=== PATIENT | female | born 1980 | race Caucasian/White ===

== ENCOUNTER 2016-10-10 18:34 | Emergency (ER) | payer MEDICAID, OTHER ==
[~2016-10-10] VITALS: Ht 162.6 cm; Wt 99.8 kg
[2016-10-10 18:35] VITALS: BP_SYST 136
[2016-10-10] MEDS ORDERED: KETOROLAC TROMETHAMINE 60 MG/2 ML VIAL IM ONE (20:00)
[2016-10-10 20:15] VITALS: BP_SYST 127
== END 2016-10-10 20:15 | disposition home or self-care (01) ==
LOC: SED 18:34
DX: S46.811A Strain of other muscles, fascia and tendons at shoulder and upper arm level, right arm, initial encounter (principal); X50.0XXA Overexertion from strenuous movement or load, initial encounter; Y93.89 Activity, other specified; Y92.89 Other specified places as the place of occurrence of the external cause; Y99.8 Other external cause status
CPT/HCPCS: 73030; 81025; 96372; 99284; J1885

== ENCOUNTER 2016-11-08 16:46 | Emergency (ER) | payer MEDICAID ==
[~2016-11-08] VITALS: Ht 162.6 cm; Wt 99.8 kg
[2016-11-08 16:50] VITALS: BP_SYST 129
[2016-11-08 18:43] LABS: BILIRUBIN,URINE NEGATIVE (NEGATIVE); BLOOD, URINE NEGATIVE (NEGATIVE); CLARITY/URINE CLEAR (CLEAR); COLOR,URINE YELLOW (YELLOW); GLUCOSE,URINE NEGATIVE (NEGATIVE); KETONES,URINE NEGATIVE (NEGATIVE); LEUKOCYTE ESTERASE ,URINE NEGATIVE (NEGATIVE); NITRITE, URINE NEGATIVE (NEGATIVE); PROTEIN URINE NEGATIVE (NEGATIVE); UROBILINOGEN,URINE 0.2 (0.2-1.0)
[2016-11-08] MEDS ORDERED: DEXAMETHASONE SOD PHOSPHATE 10 MG/ML VIAL IM ONE (18:45)
[2016-11-08] MEDS ORDERED: KETOROLAC TROMETHAMINE 60 MG/2 ML VIAL IM ONE (18:45)
[2016-11-08 18:55] LABS: BARBITURATE, URINE NEGATIVE (NEG <=200); BENZODIAZEPINE, URINE NEGATIVE (NEG <=150); CANNABINOID, URINE POSITIVE (NEG <=50); COCAINE, URINE NEGATIVE (NEG <=150); METHAMPHETAMINES SCREEN,URINE NEGATIVE (NEG <=500); URINE AMPHETAMINE NEGATIVE (NEG <=500); URINE METHADONE NEGATIVE (NEG <=200)
[2016-11-08 18:56] LABS: OPIATE, URINE NEGATIVE (NEG <=100); PHENCYCLIDINE SCREEN,URINE NEGATIVE (NEG <=25); UR TRICYCLIC ANTIDEPRESSANTS NEGATIVE (NEG <=300); URINE OXYCODONE SCREEN NEGATIVE (NEG <=100); URINE PROPOXYPHENE SCREEN NEGATIVE (NEG <=300)
[2016-11-08 19:20] VITALS: BP_SYST 122
== END 2016-11-08 19:20 | disposition home or self-care (01) ==
LOC: SED 16:46
DX: G89.29 Other chronic pain (principal); M54.5 Low back pain
CPT/HCPCS: 80307; 81003; 81025; 96372; 99284; J1100; J1885

== ENCOUNTER 2017-05-23 05:40 | Emergency (ER) | payer MEDICAID ==
[~2017-05-23] VITALS: Ht 162.6 cm; Wt 103.4 kg
[2017-05-23 05:40] VITALS: BP_SYST 121
[2017-05-23 06:12] LABS: BILIRUBIN,URINE NEGATIVE (NEGATIVE); BLOOD, URINE 3+ (NEGATIVE); CLARITY/URINE CLEAR (CLEAR); COLOR,URINE YELLOW (YELLOW); GLUCOSE,URINE NEGATIVE (NEGATIVE); KETONES,URINE NEGATIVE (NEGATIVE); LEUKOCYTE ESTERASE ,URINE 1+ (NEGATIVE); NITRITE, URINE NEGATIVE (NEGATIVE); PH,URINE 6.5 (5.0-8.0); PROTEIN URINE NEGATIVE (NEGATIVE); UROBILINOGEN,URINE 0.2 (0.2-1.0)
[2017-05-23 06:23] LABS: BACTERIA,URINE FEW /HPF (None Seen)
[2017-05-23] MEDS ORDERED: OXYCODONE/ACETAMINOPHEN 5-325 TABLET PO ONE (06:45)
[2017-05-23 07:52] LABS: BASOPHILS % (AUTO) 0.6 % (0.0-2.0); EOSINOPHILS # (AUTO) 0.1 K/uL (0.0-0.4); EOSINOPHILS % (AUTO) 0.9 % (0.0-4.0); HEMATOCRIT 35.4 % (36-48); HEMOGLOBIN 11.5 g/dL (12.0-16.0); LYMPHOCYTES # (AUTO) 1.7 K/uL (1.0-5.5); LYMPHOCYTES % (AUTO) 23.2 % (20.5-51.5); MEAN CORPUSCULAR HEMOGLOBIN 28 pg (27-31); MEAN CORPUSCULAR HGB CONC 33 % (32-36); MEAN CORPUSCULAR VOLUME 85 fL (79.0-98.0); MONOCYTES # (AUTO) 0.4 K/uL (0.0-1.0); MONOCYTES % (AUTO) 6.3 % (1.7-9.3); NEUTROPHILS # (AUTO) 4.9 K/uL (1.8-7.7); PLATELET COUNT (AUTO) 229 K/uL (130-430); RED BLOOD CELL COUNT(AUTO) 4.16 MIL/uL (4.2-6.2); RED CELL DISTRIBUTION WIDTH 16.7 % (9.0-15.0); WHITE BLOOD COUNT (AUTO) 7.1 K/uL (4.8-10.8)
[2017-05-23 08:17] LABS: CALCIUM 8.4 mg/dL (8.4-11.0); CREATININE 0.6 mg/dL (0.55-1.30); POTASSIUM 3.5 mmol/L (3.5-5.1)
[2017-05-23 08:47] LABS: ALBUMIN 3.3 g/dL (3.4-4.8); TOTAL BILIRUBIN 0.4 mg/dL (0.0-1.0)
[2017-05-23 09:32] VITALS: BP_SYST 115
== END 2017-05-23 09:32 | disposition home or self-care (01) ==
LOC: SED 05:40
DX: O20.0 Threatened abortion (principal); O23.42 Unspecified infection of urinary tract in pregnancy, second trimester; Z3A.14 14 weeks gestation of pregnancy
CPT/HCPCS: 36415; 76801; 76817; 80053; 81000-TC; 81025; 84702-TC; 85025; 86900; 86901; 87086; 99285

== ENCOUNTER 2017-08-01 13:44 | Emergency (ER) | payer MEDICAID ==
[~2017-08-01] VITALS: Ht 162.6 cm; Wt 97.5 kg
[2017-08-01 14:27] VITALS: BP_SYST 115
[2017-08-01 15:20] LABS: HEMATOCRIT 39.5 % (36-48); HEMOGLOBIN 12.9 g/dL (12.0-16.0); MEAN CORPUSCULAR HEMOGLOBIN 28 pg (27-31); MEAN CORPUSCULAR HGB CONC 33 % (32-36); MEAN CORPUSCULAR VOLUME 85 fL (79.0-98.0); PLATELET COUNT (AUTO) 306 K/uL (130-430); RED BLOOD CELL COUNT(AUTO) 4.65 MIL/uL (4.2-6.2); RED CELL DISTRIBUTION WIDTH 15.7 % (9.0-15.0); WHITE BLOOD COUNT (AUTO) 6.8 K/uL (4.8-10.8)
[2017-08-01 15:37] LABS: CALCIUM 9.3 mg/dL (8.4-11.0); CREATININE 0.69 mg/dL (0.55-1.30)
[2017-08-01 16:01] LABS: BASOPHILS % (MANUAL) 0 % (0-2); EOSINOPHILS % (MANUAL) 0 % (0-7); LYMPHOCYTES % (MANUAL) 28 % (20-46); MONOCYTES % (MANUAL) 6 % (0-11)
[2017-08-01] MEDS ORDERED: KETOROLAC TROMETHAMINE 60 MG/2 ML VIAL IM ONE ×2 (16:26→16:30)
[2017-08-01] MEDS ORDERED: MORPHINE 4 MG/ML INJ. SYRINGE IVP ONE (16:45)
[2017-08-01 17:13] LABS: BILIRUBIN,URINE NEGATIVE (NEGATIVE); BLOOD, URINE NEGATIVE (NEGATIVE); CLARITY/URINE CLEAR (CLEAR); COLOR,URINE YELLOW (YELLOW); GLUCOSE,URINE NEGATIVE (NEGATIVE); KETONES,URINE NEGATIVE (NEGATIVE); LEUKOCYTE ESTERASE ,URINE NEGATIVE (NEGATIVE); NITRITE, URINE NEGATIVE (NEGATIVE); PROTEIN URINE NEGATIVE (NEGATIVE)
[2017-08-01] MEDS ORDERED: MORPHINE SULFATE 10 MG/ML VIAL IVP ONE (17:15)
[2017-08-01 18:30] VITALS: BP_SYST 118
== END 2017-08-01 18:30 | disposition home or self-care (01) ==
LOC: SED 13:44
DX: N93.9 Abnormal uterine and vaginal bleeding, unspecified (principal)
CPT/HCPCS: 36415; 80048; 81003; 85007; 85027; 96372; 96374; 99284; J1885; J2270

== ENCOUNTER 2019-04-29 16:10 | Emergency (ER) | payer MEDICAID, OTHER ==
[~2019-04-29] VITALS: Ht 162.6 cm; Wt 86.2 kg
[2019-04-29 16:10] VITALS: BP_SYST 126
--- NOTE | 2019-04-29 16:10 | NUR ---
BROUGHT BACK TO BED #7 AND TRIAGED. REPORT GIVEN TO NATALIE
--- NOTE | 2019-04-29 16:20 | NUR ---
pt arrives w/ c/o abd pain. Pt denies any N/V/D. Will continue to monitor.
--- NOTE | 2019-04-29 16:30 | NUR ---
ANNE-MARIE Panchal NP at bedside examining patient.
[2019-04-29] MEDS ORDERED: KETOROLAC TROMETHAMINE 60 MG/2 ML VIAL IM ONE (16:45)
[2019-04-29 17:43] LABS: BILIRUBIN,URINE NEGATIVE (NEGATIVE); BLOOD, URINE NEGATIVE (NEGATIVE); CLARITY/URINE CLEAR (CLEAR); COLOR,URINE YELLOW (YELLOW); GLUCOSE,URINE NEGATIVE (NEGATIVE); KETONES,URINE NEGATIVE (NEGATIVE); LEUKOCYTE ESTERASE ,URINE 1+ (NEGATIVE); NITRITE, URINE NEGATIVE (NEGATIVE); PH,URINE 5.5 (5.0-8.0); PROTEIN URINE NEGATIVE (NEGATIVE); UROBILINOGEN,URINE 0.2 (0.2-1.0)
[2019-04-29 17:52] LABS: BACTERIA,URINE FEW /HPF (None Seen); RBC,URINE 0-3 /HPF (0-3)
--- NOTE | 2019-04-29 18:00 | NUR ---
Pelvic exam done by Jade ORONA. Pt tolertated well.
--- NOTE | 2019-04-29 19:10 | NUR ---
Care endorsed to Juanito ARCOS.
[2019-04-29 19:31] VITALS: BP_SYST 126
--- NOTE | 2019-04-29 19:32 | NUR ---
Patient given written and verbal discharge instructions and verbalizes understanding. ER MD discussed with patient the results and treatment provided. Patient in stable condition. ID arm band removed. Patient educated on pain management and to follow up with PMD. Pain Scale 0/10.Opportunity for questions provided and answered. Medication side effect fact sheet provided.
[2019-05-02 04:14] LABS: CHLAMYDIA TRACHOMATIS NAA Negative (Negative); NEISSERIA GONORRHOEAE NAA Negative (Negative)
== END 2019-04-29 19:31 | disposition home or self-care (01) ==
LOC: SED 16:10
DX: N30.00 Acute cystitis without hematuria (principal); N76.0 Acute vaginitis; B96.89 Other specified bacterial agents as the cause of diseases classified elsewhere; R03.0 Elevated blood-pressure reading, without diagnosis of hypertension; Z86.14 Personal history of Methicillin resistant Staphylococcus aureus infection
CPT/HCPCS: 36415; 81000; 81025; 84702; 87086; 87210; 87491; 87591; 96372; 99283; J1885

== ENCOUNTER 2019-08-19 01:08 | Emergency (ER) | payer MEDICAID ==
[~2019-08-19] VITALS: Ht 162.6 cm; Wt 86.2 kg
[2019-08-19 01:08] VITALS: BP_SYST 145
--- NOTE | 2019-08-19 01:12 | NUR ---
Patient to ER bed HALLWAY for evaluation. Side rails up.
--- NOTE | 2019-08-19 01:51 | NUR ---
Pt decided to leave without being seen. Pt states, "I do not want to wait for the doctor, I would rather go home with my kids."
== END 2019-08-19 01:51 | disposition left against medical advice (07) ==
LOC: SED 01:08
DX: R07.0 Pain in throat (principal); Z53.21 Procedure and treatment not carried out due to patient leaving prior to being seen by health care provider

== ENCOUNTER 2020-07-28 16:35 | Emergency (ER) | payer MEDICAID, SELFPAY ==
[~2020-07-28] VITALS: Ht 154.9 cm; Wt 104.3 kg
[2020-07-28 16:35] VITALS: BP_SYST 144
== END 2020-07-28 17:17 | disposition left against medical advice (07) ==
LOC: SED 16:35
DX: U07.1 COVID-19 (principal); Z20.822 Contact with and (suspected) exposure to COVID-19
CPT/HCPCS: 36415; 99283

== ENCOUNTER 2023-08-15 08:53 | Emergency (ER) | payer MEDICAID, OTHER ==
[~2023-08-15] VITALS: Ht 162.6 cm; Wt 98.9 kg
[2023-08-15 09:07] VITALS: BP_SYST 132; PULSE 89; RESP 19; TEMP 98.5; O2SAT 98
[2023-08-15] MEDS ORDERED: ACET-2634 PO (09:55)
[2023-08-15 10:11] LABS: INFLUENZA TYPE A Negative (NEGATIVE); INFLUENZA TYPE B NEGATIVE (NEGATIVE)
[2023-08-15 10:12] LABS: COVID19 ANTIGEN SOFIA FIA NEGATIVE (NEGATIVE)
[2023-08-15 10:39] VITALS: BP_SYST 130; PULSE 90; RESP 19; TEMP 98.5; O2SAT 98
== END 2023-08-15 10:15 | disposition home or self-care (01) ==
LOC: SED 08:53
DX: J06.9 Acute upper respiratory infection, unspecified (principal); R05.9 Cough, unspecified; R09.89 Other specified symptoms and signs involving the circulatory and respiratory systems; M79.10 Myalgia, unspecified site; Z79.899 Other long term (current) drug therapy; Z20.822 Contact with and (suspected) exposure to COVID-19
CPT/HCPCS: 36415; 99283